=== PATIENT | male | born 1935 | race Caucasian/White ===

== ENCOUNTER 2023-01-04 09:39 | Emergency (ER) | payer MEDICARE, SELFPAY ==
[2023-01-04] VITALS (15 sets, daily range): BP systolic 99–147; BP diastolic 56–96; PULSE 63–134; RESP 18; TEMP 36.2; O2SAT 92–97; BMI 22.9
--- NOTE | 2023-01-04 10:18 | CRLHL7_ITS ---
For Patients: As a result of the Cures Act, medical imaging exams and procedure reports are released immediately into your electronic medical record. You may view this report before your referring provider. If you have questions, please contact your health care provider. INDICATION: CHILLS TECHNIQUE: Chest 1 view COMPARISON: 06/21/2012 FINDINGS: Postop changes distal left clavicular fracture. Degenerative changes both shoulders. No dense infiltrate. Vascular calcifications. Stable mediastinum. IMPRESSION: No acute findings. Dictated by Og Babb MD @ 01/04/2023 10:42:23 AM (Electronically Signed)
--- NOTE | 2023-01-04 10:20 | ED.GENADULT ---
HPI - General Adult General Time Seen by Provider: 10:20 Date Seen: 01/04/23 Chief complaint: Arrhythmia/Palpitations Stated complaint: Potential COVID, bad heart Time Seen by Provider: 01/04/23 10:03 Source: patient Mode of arrival: ambulatory Limitations: no limitations History of Present Illness HPI narrative: Patient is an 87 year white male who is on aspirin for AFib, work with rapid heart rate today, felt a little chilled. He was concerned he might have COVID as he was exposed to his at correction would COVID. Also family member here with him is ?recovering from COVID . Patient reports no shortness of breath, no chest pain, states he feels a little ?off? today, he is ambulatory he is able to sit up without difficulty or dizziness. He does not really feel dizzy or vertigo. He denies chest pain denies leg swelling or edema, is usually quite active. Related Data Allergies Allergy/AdvReac Type Severity Reaction Status Date / Time No Known Drug Allergies Allergy Verified 01/04/23 09:46 Review of Systems Status of ROS: Reports: 6 or more systems reviewed and unremarkable except as noted in History and below [facility] Medical History Health care directive on file ?Z78.9 - Other specified health status (ICD-10) Social History Smoking Status: Current every day smoker What tobacco products do you use: pipe Second hand tobacco smoke exposure: No How often do you have a drink containing alcohol: never How often do you have six or more drinks on one occasion: Never AUDIT-C Alcohol total score: 0 Non-prescribed substance use: other Non-prescribed substance use details: Kratom Exam Narrative: Exam Narrative: Objective: Alert orient x3, no cyanosis, talks in even unlabored sentences Vital signs show slightly elevated systolic and diastolic pressure, initially his pulse is 134, the patient was noted to be in AFib with a rapid rate at 134 a.m., but subsequently converted to normal sinus rhythm at about a rate of 70. He had obvious P waves. This was noted on telemetry, EKG pending. HEENT is unremarkable facial asymmetry mouth clear neck is supple chest is clear no rales or wheezing Heart rhythm regular with 2/6 systolic murmur. Abdomen benign soft nontender Extremities are no edema neurologic nonfocal : good peripheral perfusion noted. Const: Vital Signs, click to edit/add: Vital Signs - 24 hr 01/04/23 09:42 01/04/23 10:04 01/04/23 10:18 Temperature 97.2 F L Pulse Rate 76 Pulse Rate [Right Pulse Oximeter] 134 H Respiratory Rate 18 Blood Pressure Blood Pressure [Ri ght Upper Arm] 147/96 H Pulse Oximetry 97 97 94 Oxygen Delivery Me thod Room Air 01/04/23 10:30 01/04/23 10:36 01/04/23 10:37 Temperature Pulse Rate 72 72 72 Pulse Rate [Right Pulse Oximeter] Respiratory Rate Blood Pressure 115/65 Blood Pressure [Ri ght Upper Arm] Pulse Oximetry 97 95 95 Oxygen Delivery Me thod 01/04/23 11:00 01/04/23 11:02 01/04/23 11:03 Temperature Pulse Rate 71 74 70 Pulse Rate [Right Pulse Oximeter] Respiratory Rate Blood Pressure 113/56 L Blood Pressure [Ri ght Upper Arm] Pulse Oximetry 95 95 96 Oxygen Delivery Me thod 01/04/23 11:30 01/04/23 11:32 01/04/23 11:35 Temperature Pulse Rate 69 65 65 Pulse Rate [Right Pulse Oximeter] Respiratory Rate Blood Pressure 99/76 100/58 L Blood Pressure [Ri ght Upper Arm] Pulse Oximetry 92 94 94 Oxygen Delivery Me thod 01/04/23 12:00 01/04/23 12:02 01/04/23 12:03 Temperature Pulse Rate 63 63 64 Pulse Rate [Right Pulse Oximeter] Respiratory Rate Blood Pressure 112/59 L Blood Pressure [Ri ght Upper Arm] Pulse Oximetry 94 92 93 Oxygen Delivery Me thod Course Vital Signs Vital signs: Initial Vital Signs Temperature 97.2 F L 01/04/23 09:42 Temperature Source Temporal Artery Scan 01/04/23 09:42 Pulse Rate 134 H 01/04/23 09:42 Respiratory Rate 18 01/04/23 09:42 Blood Pressure 147/96 H 01/04/23 09:42 Blood Pressure Mean 113 H 01/04/23 09:42 Blood Pressure Position Sitting 01/04/23 09:42 Pulse Oximetry 97 01/04/23 09:42 Oxygen Delivery Method Room Air 01/04/23 09:42 Vital Signs Temperature 97.2 F L 01/04/23 09:42 Pulse Rate 134 H 01/04/23 09:42 Respiratory Rate 18 01/04/23 09:42 Blood Pressure 147/96 H 01/04/23 09:42 Pulse Oximetry 97 01/04/23 09:42 Oxygen Delivery Method Room Air 01/04/23 09:42 Temperature 97.2 F L 01/04/23 09:42 Pulse Rate 64 01/04/23 12:03 Respiratory Rate 18 01/04/23 09:42 Blood Pressure 112/59 L 01/04/23 12:02 Pulse Oximetry 93 01/04/23 12:03 Oxygen Delivery Method Room Air 01/04/23 09:42 Medical Decision Making MDM Narrative Medical decision making narrative: [age] year white male has been around COVID recently, with mild chills today, AFib with rapid rate, with what sounds like paroxysmal atrial fibrillation, now he has converted to sinus rhythm. He does feel better, would check a troponin, labs, IV fluid will be given, will check a COVID/influenza/RSV test. Will check a chest x-ray. Disposition pending findings. Addendum: The patient's chest x-ray looks unremarkable, by my read, he has a negative lab studies, he has a troponin that is in the intermediate range with normal renal function. His troponin I is in the 0.07 range and in the intermediate range. This is consistent with his point of care troponin. He is asymptomatic at present, he has converted from AFib to a sinus rhythm. He has been on aspirin for his AFib by his physician's preference and the patient's choice, is ER profile is unremarkable and glucose is elevated at 141. His CRP is negative, proBNP is negative, COVID influenza RSV are negative. In discussion the case the patient like to go home, I think it be worthy to get 1 more troponin before he leaves. He is agreeable to this. Addendum 12 30 p.m.: The patient had a 2nd troponin that is in the intermediate range but unchanged from his prior. I think he is since he has had no chest pain he can go home light activity, continue his usual medications, he was negative for all as viral studies. Observation and return if problems or concerns. Recommend he recheck with regular doctor within the next couple of days. Lab Data Labs: Lab Results 01/04/23 01/04/23 01/04/23 Range/Units 10:10 10:19 10:35 WBC 7.16 (4.50-11.00) K/uL RBC 4.10 L (4.30-5.90) m/uL Hgb 13.5 (13.5-17.5) gm/dL Hct 40.8 (37.0-53.0) % MCV 100 (80-100) fL MCH 33 (26-34) pg MCHC 33 (32-36) gm/dL RDW Coeff of Julito 12.4 (11.5-15.5) % Plt Count 335 (140-440) K/uL Neut % (Auto) 78.4 H (42.0-72.0) % Lymph % (Auto) 9.6 L (20-44) % [place] % (Auto) 10.3 (0.0-11.0) % Eos % (Auto) 1.5 (0.0-7.0) % Baso % (Auto) 0.1 (0.0-3.0) % Neut # (Auto) 5.60 (1.7-7.0) K/uL Lymph # (Auto) 0.70 L (0.90-2.90) K/uL [place] # (Auto) 0.70 (0.00-0.90) K/UL Eos # (Auto) 0.11 (0.00-0.50) K/uL Baso # (Auto) 0.01 (0.00-0.30) K/uL Abs Immat Gran (auto) 0.01 (0.00-0.30) K/uL Imm/Tot Granulo (auto) 0.1 % Sodium Cancelled Potassium Chloride Carbon Dioxide Anion Gap BUN Creatinine Estimated Creat Clear Estimated GFR Glucose Calcium Total Bilirubin (0.1-1.5) mg/dL Direct Bilirubin (0.0-0.5) mg/dL AST (12-35) U/L ALT (4-50) U/L Alkaline Phosphatase (40-150) U/L Troponin I (0.01-0.04) ng/mL C-Reactive Protein (0.5-1.0) mg/dL NT-Pro-B Natriuret Pep pg/mL Total Protein (6.0-8.3) g/dL Albumin (3.3-5.0) g/dL Amylase (18-89) U/L SARS-CoV-2 (PCR) Negative SARS-CoV-2 (Negative) Influenza Type A (PCR) Negative PCR FLU A (Negative) Influenza Type B (PCR) Negative PCR FLU B (Negative) RSV (PCR) Negative PCR RSV (Negative) POC Troponin I 0.07 H (0.01-0.04) ng/ml 01/04/23 01/04/23 01/04/23 Range/Units 10:35 10:35 10:35 WBC (4.50-11.00) K/uL RBC (4.30-5.90) m/uL Hgb (13.5-17.5) gm/dL Hct (37.0-53.0) % MCV (80-100) fL MCH (26-34) pg MCHC (32-36) gm/dL RDW Coeff of Julito (11.5-15.5) % Plt Count (140-440) K/uL Neut % (Auto) (42.0-72.0) % Lymph % (Auto) (20-44) % [place] % (Auto) (0.0-11.0) % Eos % (Auto) (0.0-7.0) % Baso % (Auto) (0.0-3.0) % Neut # (Auto) (1.7-7.0) K/uL Lymph # (Auto) (0.90-2.90) K/uL [place] # (Auto) (0.00-0.90) K/UL Eos # (Auto) (0.00-0.50) K/uL Baso # (Auto) (0.00-0.30) K/uL Abs Immat Gran (auto) (0.00-0.30) K/uL Imm/Tot Granulo (auto) % Sodium 142 Potassium Cancelled 3.8 Chloride Cancelled 107 Carbon Dioxide Cancelled Anion Gap BUN Creatinine Estimated Creat Clear Estimated GFR Glucose Calcium Total Bilirubin (0.1-1.5) mg/dL Direct Bilirubin (0.0-0.5) mg/dL AST (12-35) U/L ALT (4-50) U/L Alkaline Phosphatase (40-150) U/L Troponin I (0.01-0.04) ng/mL C-Reactive Protein (0.5-1.0) mg/dL NT-Pro-B Natriuret Pep pg/mL Total Protein (6.0-8.3) g/dL Albumin (3.3-5.0) g/dL Amylase (18-89) U/L SARS-CoV-2 (PCR) (Negative) Influenza Type A (PCR) (Negative) Influenza Type B (PCR) (Negative) RSV (PCR) (Negative) POC Troponin I (0.01-0.04) ng/ml 01/04/23 01/04/23 01/04/23 Range/Units 10:35 10:35 10:35 WBC (4.50-11.00) K/uL RBC (4.30-5.90) m/uL Hgb (13.5-17.5) gm/dL Hct (37.0-53.0) % MCV (80-100) fL MCH (26-34) pg MCHC (32-36) gm/dL RDW Coeff of Julito (11.5-15.5) % Plt Count (140-440) K/uL Neut % (Auto) (42.0-72.0) % Lymph % (Auto) (20-44) % [place] % (Auto) (0.0-11.0) % Eos % (Auto) (0.0-7.0) % Baso % (Auto) (0.0-3.0) % Neut # (Auto) (1.7-7.0) K/uL Lymph # (Auto) (0.90-2.90) K/uL [place] # (Auto) (0.00-0.90) K/UL Eos # (Auto) (0.00-0.50) K/uL Baso # (Auto) (0.00-0.30) K/uL Abs Immat Gran (auto) (0.00-0.30) K/uL Imm/Tot Granulo (auto) % Sodium Potassium Chloride Carbon Dioxide 27 Anion Gap Cancelled 8 BUN Cancelled 19 Creatinine Cancelled Estimated Creat Clear Estimated GFR Glucose Calcium Total Bilirubin (0.1-1.5) mg/dL Direct Bilirubin (0.0-0.5) mg/dL AST (12-35) U/L ALT (4-50) U/L Alkaline Phosphatase (40-150) U/L Troponin I (0.01-0.04) ng/mL C-Reactive Protein (0.5-1.0) mg/dL NT-Pro-B Natriuret Pep pg/mL Total Protein (6.0-8.3) g/dL Albumin (3.3-5.0) g/dL Amylase (18-89) U/L SARS-CoV-2 (PCR) (Negative) Influenza Type A (PCR) (Negative) Influenza Type B (PCR) (Negative) RSV (PCR) (Negative) POC Troponin I (0.01-0.04) ng/ml 01/04/23 01/04/23 01/04/23 Range/Units 10:35 10:35 10:35 WBC (4.50-11.00) K/uL RBC (4.30-5.90) m/uL Hgb (13.5-17.5) gm/dL Hct (37.0-53.0) % MCV (80-100) fL MCH (26-34) pg MCHC (32-36) gm/dL RDW Coeff of Julito (11.5-15.5) % Plt Count (140-440) K/uL Neut % (Auto) (42.0-72.0) % Lymph % (Auto) (20-44) % [place] % (Auto) (0.0-11.0) % Eos % (Auto) (0.0-7.0) % Baso % (Auto) (0.0-3.0) % Neut # (Auto) (1.7-7.0) K/uL Lymph # (Auto) (0.90-2.90) K/uL [place] # (Auto) (0.00-0.90) K/UL Eos # (Auto) (0.00-0.50) K/uL Baso # (Auto) (0.00-0.30) K/uL Abs Immat Gran (auto) (0.00-0.30) K/uL Imm/Tot Granulo (auto) % Sodium Potassium Chloride Carbon Dioxide Anion Gap BUN Creatinine 0.8 Estimated Creat Clear Cancelled 53.71 Estimated GFR Cancelled 87 Glucose Cancelled Calcium Total Bilirubin (0.1-1.5) mg/dL Direct Bilirubin (0.0-0.5) mg/dL AST (12-35) U/L ALT (4-50) U/L Alkaline Phosphatase (40-150) U/L Troponin I (0.01-0.04) ng/mL C-Reactive Protein (0.5-1.0) mg/dL NT-Pro-B Natriuret Pep pg/mL Total Protein (6.0-8.3) g/dL Albumin (3.3-5.0) g/dL Amylase (18-89) U/L SARS-CoV-2 (PCR) (Negative) Influenza Type A (PCR) (Negative) Influenza Type B (PCR) (Negative) RSV (PCR) (Negative) POC Troponin I (0.01-0.04) ng/ml 01/04/23 01/04/23 01/04/23 Range/Units 10:35 10:35 11:55 WBC (4.50-11.00) K/uL RBC (4.30-5.90) m/uL Hgb (13.5-17.5) gm/dL Hct (37.0-53.0) % MCV (80-100) fL MCH (26-34) pg MCHC (32-36) gm/dL RDW Coeff of Julito (11.5-15.5) % Plt Count (140-440) K/uL Neut % (Auto) (42.0-72.0) % Lymph % (Auto) (20-44) % [place] % (Auto) (0.0-11.0) % Eos % (Auto) (0.0-7.0) % Baso % (Auto) (0.0-3.0) % Neut # (Auto) (1.7-7.0) K/uL Lymph # (Auto) (0.90-2.90) K/uL [place] # (Auto) (0.00-0.90) K/UL Eos # (Auto) (0.00-0.50) K/uL Baso # (Auto) (0.00-0.30) K/uL Abs Immat Gran (auto) (0.00-0.30) K/uL Imm/Tot Granulo (auto) % Sodium Potassium Chloride Carbon Dioxide Anion Gap BUN Creatinine Estimated Creat Clear Estimated GFR Glucose 141 H Calcium Cancelled 9.6 Total Bilirubin 0.5 (0.1-1.5) mg/dL Direct Bilirubin 0.1 (0.0-0.5) mg/dL AST 31 (12-35) U/L ALT 26 (4-50) U/L Alkaline Phosphatase 86 (40-150) U/L Troponin I 0.07 H* (0.01-0.04) ng/mL C-Reactive Protein < 0.5 L (0.5-1.0) mg/dL NT-Pro-B Natriuret Pep 579 pg/mL Total Protein 7.3 (6.0-8.3) g/dL Albumin 3.9 (3.3-5.0) g/dL Amylase 53 (18-89) U/L SARS-CoV-2 (PCR) (Negative) Influenza Type A (PCR) (Negative) Influenza Type B (PCR) (Negative) RSV (PCR) (Negative) POC Troponin I 0.07 H (0.01-0.04) ng/ml Discharge Plan Discharge Clinical Impression: At increased risk of exposure to COVID-19 virus, Atrial fibrillation with rapid ventricular response Patient Disposition: Home w/ Parent or Adult Condition: Improved Additional Instructions: Light activity, continue home medications, would recommend repeat visit with her primary care doctor in the next few days. Return to the ED as needed. Activity Level: Light activity Discharge Diet: Regular Stand Alone Forms: MyHealth Info Instructions
[2023-01-04 10:54] LABS: Troponin, Point-of-Care* 0.07 ng/ml (0.01-0.04)
[2023-01-04 11:04] LABS: Basophils Absolute Auto 0.01 K/uL (0.00-0.30); Basophils Percent Auto 0.1 % (0.0-3.0); Eosinophils Absolute Auto 0.11 K/uL (0.00-0.50); Eosinophils Percent Auto 1.5 % (0.0-7.0); Hematocrit 40.8 % (37.0-53.0); Hemoglobin* 13.5 gm/dL (13.5-17.5); Immature Granulocytes Abs Auto 0.01 K/uL (0.00-0.30); Immature Granulocytes Pct Auto 0.1 %; Lymphocytes Percent Auto 9.6 % (20-44); Mean Corpuscular HGB Conc 33 gm/dL (32-36); Mean Corpuscular Hemoglobin 33 pg (26-34); Mean Corpuscular Volume 100 fL (80-100); Monocytes Percent Auto 10.3 % (0.0-11.0); Neutrophils Percent Auto 78.4 % (42.0-72.0); Platelet Count* 335 K/uL (140-440); RDW Coefficient of Variation % 12.4 % (11.5-15.5); White Blood Count* 7.16 K/uL (4.50-11.00)
[2023-01-04 11:08] LABS: PCR FLU A Negative PCR FLU A (Negative); PCR FLU B Negative PCR FLU B (Negative); PCR RSV Negative PCR RSV (Negative)
[2023-01-04 11:08] LABS: Slide Review Reflex No
[2023-01-04 11:12] LABS: SARS PCR* Negative SARS-CoV-2 (Negative)
[2023-01-04] MEDS: 0.9 % SODIUM CHLORIDE 500 ML 500 ML IV (11:20)
[2023-01-04 11:21] LABS: Albumin* 3.9 g/dL (3.3-5.0); Chloride* 107 mmol/L (96-114); Sodium* 142 mmol/L (135-149)
[2023-01-04 11:22] LABS: Potassium* 3.8 mmol/L (3.6-5.1)
[2023-01-04 11:24] LABS: Amylase* 53 U/L (18-89); Anion Gap 8 mEq/L (7-15); Bilirubin Direct* 0.1 mg/dL (0.0-0.5); Bilirubin Total* 0.5 mg/dL (0.1-1.5); Carbon Dioxide* 27 mmol/L (20-32); Creatinine* 0.8 mg/dL (0.5-1.5); Est. Creatinine Clearance* 53.71; Estimated Glomerular Filt Rate 87 ml/min; Total Protein* 7.3 g/dL (6.0-8.3)
[2023-01-04 11:25] LABS: Alanine Aminotransferase* 26 U/L (4-50); Alkaline Phosphatase* 86 U/L (40-150); Aspartate Amino Transferase* 31 U/L (12-35); Blood Urea Nitrogen* 19 mg/dL (7-30); Calcium* 9.6 mg/dL (8.4-10.6); Glucose* 141 mg/dL (60-115)
[2023-01-04 11:35] LABS: C Reactive Protein* < 0.5 mg/dL (0.5-1.0); NT Pro B Type NatriureticPept* 579 pg/mL
[2023-01-04 11:40] LABS: Troponin I* 0.07 ng/mL (0.01-0.04)
[2023-01-04 12:18] LABS: Troponin, Point-of-Care* 0.07 ng/ml (0.01-0.04)
== END 2023-01-04 12:38 | disposition home or self-care (01) ==
PROVIDERS: Emergency Provider Family Medicine; PCP Family Medicine
DX: Z20.822 Contact with and (suspected) exposure to COVID-19 (principal); I48.91 Unspecified atrial fibrillation
CPT/HCPCS: 36415; 71045; 80048; 80076; 82150; 83880; 84484; 85025; 86140; 87631; 93005; 94761; 96360; 99283; 99285; J7120

== ENCOUNTER 2023-01-17 19:06 | Emergency (ER) | payer MEDICARE, SELFPAY ==
[2023-01-17 19:17] VITALS: BP 109/63; PULSE 66; RESP 14; TEMP 36.1; O2SAT 94; BMI 23.6
--- NOTE | 2023-01-17 20:06 | ED.GENADULT ---
HPI - General Adult General Chief complaint: Lower Extremity Swelling Stated complaint: Swelling, pain in R leg Time Seen by Provider: 01/17/23 20:05 History of Present Illness HPI narrative: Pt here for eval of R knee/ lower leg swelling and pain. Woke up with symptoms, unable to walk on it. Recently started on warfarin for afib and have been adjusting dosages. Family concerned about a blood clot. 87 year old man presenting to the ER with primary complaint of left leg pain. On exam that would seem to be primarily the anterior aspect of the knee. Has had issues here before. No fever. Does not recall any trauma just woke with it. Even light touch really hurts. Has had some swelling in the lower leg as well so it seems therefore concerned about a blood clot as he is being adjusted with new Coumadin with a history of atrial fibrillation. No cough or cold symptoms. No shortness of breath. No chest pain. Does have tramadol available but this does not seem to help. Related Data Home Medications Medication Instructions Recorded Confirmed amlodipine 10 mg tablet 10 mg PO DAILY 01/17/23 02/13/23 atorvastatin 40 mg tablet 40 mg PO QPM 01/17/23 02/13/23 escitalopram oxalate 5 mg tablet 5 mg PO QAM 01/17/23 02/13/23 furosemide 20 mg tablet 20 mg PO QAM 01/17/23 02/13/23 gabapentin 300 mg capsule 300 mg PO 3XD 01/17/23 02/13/23 lisinopril 20 mg tablet 20 mg PO DAILY 01/17/23 02/13/23 metformin 500 mg tablet,extended 500 mg PO DAILY 01/17/23 02/13/23 release 24 hr metoprolol succinate 25 mg 100 mg PO DAILY 01/17/23 02/13/23 tablet,extended release 24 hr tramadol 50 mg tablet 50 mg PO QID PRN 01/17/23 02/13/23 warfarin 5 mg tablet 5 mg PO DAILY 01/17/23 02/13/23 ropinirole 0.5 mg tablet 0.5 mg PO QPM 02/13/23 02/13/23 Previous Rx's Medication Instructions Recorded ciprofloxacin HCl 500 mg tablet 500 mg PO BID 7 days #13 tabs 02/13/23 Allergies Allergy/AdvReac Type Severity Reaction Status Date / Time amoxicillin [From Augmentin] Allergy Intermediate severe Verified 02/13/23 17:46 diarrhea clavulanic acid Allergy Intermediate severe Verified 02/13/23 17:46 [From Augmentin] diarrhea Review of Systems Status of ROS: Reports: 6 or more systems reviewed and unremarkable except as noted in History and below [facility] Medical History Health care directive on file ?Z78.9 - Other specified health status (ICD-10) Social History Smoking Status: Current every day smoker What tobacco products do you use: pipe Second hand tobacco smoke exposure: No How often do you have a drink containing alcohol: never How often do you have six or more drinks on one occasion: Never AUDIT-C Alcohol total score: 0 Non-prescribed substance use: denies use and other Non-prescribed substance use details: [facility] service: No Exam Narrative: Exam Narrative: Pleasant. Mildly hard of hearing. Skin is warm and dry. Palm sized area of erythema anterior over the right knee without significant induration really of the skin. He is however exquisitely tender to even light touch this area. Mild calor. There is a small scab inferior and medial to the patella. Is not swollen like I might expect for a prepatellar bursa. There is mild far distal pitting edema about the ankle 1+. Generalized hemosiderin deposition and some scabs over the anterior ny. Negative Homans. Is not tender in the musculature of the calf or actually behind the knee. Const: Vital Signs, click to edit/add: Vital Signs - 24 hr 01/17/23 19:17 Temperature 97.0 F L Pulse Rate [Pulse Oximeter] 66 Respiratory Rate 14 Blood Pressure [Le ft Upper Arm] 109/63 Pulse Oximetry 94 Oxygen Delivery Me thod Room Air Documenting provider has reviewed patient's vital signs: yes Course Vital Signs Vital signs: Initial Vital Signs Temperature 97.0 F L 01/17/23 19:17 Temperature Source Temporal Artery Scan 01/17/23 19:17 Pulse Rate 66 01/17/23 19:17 Pulse Rhythm Regular 01/17/23 19:17 Respiratory Rate 14 01/17/23 19:17 Blood Pressure 109/63 01/17/23 19:17 Blood Pressure Mean 78 01/17/23 19:17 Blood Pressure Position Sitting 01/17/23 19:17 Pulse Oximetry 94 01/17/23 19:17 Oxygen Delivery Method Room Air 01/17/23 19:17 Vital Signs Temperature 97.0 F L 01/17/23 19:17 Pulse Rate 66 01/17/23 19:17 Respiratory Rate 14 01/17/23 19:17 Blood Pressure 109/63 01/17/23 19:17 Pulse Oximetry 94 01/17/23 19:17 Oxygen Delivery Method Room Air 01/17/23 19:17 Temperature 97.0 F L 01/17/23 19:17 Pulse Rate 66 01/17/23 19:17 Respiratory Rate 14 01/17/23 19:17 Blood Pressure 109/63 01/17/23 19:17 Pulse Oximetry 94 01/17/23 19:17 Oxygen Delivery Method Room Air 01/17/23 19:17 Medical Decision Making MDM Narrative Medical decision making narrative: Considering degree of tenderness absent any injury I think this is more likely a gout or pseudogout type issue here, however I might expect more swelling or joint effusion.. Will collect labs in this regard. I do not think imaging is warranted. Does not have convincing evidence of a DVT otherwise I would say. Will check INR however. The edema around the ankle I think is more related to the proximal inflammation. Cellulitis related to this skin trauma remains in the differential. Does not have much induration of the skin though nor swelling that I might think more consistent with a prepatellar bursitis. White count was mildly elevated not inconsistent with gouty flare or cellulitis or prepatellar bursitis. Uric acid is normal. Again not excluding a gouty diagnosis. I think prudent to treat for cellulitis. Is given Rocephin. He did feel he would benefit from some fluids and so was also given L normal saline. Also gave 1 dosing of prednisone in the ER. Will be continued on cephalexin as outpatient. Monitor for spread though would give a couple of days of trajectory. I debated continuing course of prednisone for degree of inflammation I see. I think though less likely a gouty history given has never had prior evidence of gout now at 87 years old. Otherwise prepatellar bursitis remains a possibility. Trying to avoid NSAIDs with Coumadin dosing. May need to continue with course of prednisone. Otherwise will be given some [place] as he is already familiar with tramadol. See patient discharge plan Lab Data Lab results reviewed: Yes I reviewed the patient's lab results Labs: Lab Results 01/17/23 01/17/23 Range/Units 20:37 21:04 WBC 12.87 H (4.50-11.00) K/uL RBC 3.88 L (4.30-5.90) m/uL Hgb 12.6 L (13.5-17.5) gm/dL Hct 39.0 (37.0-53.0) % MCV 101 H (80-100) fL MCH 33 (26-34) pg MCHC 32 (32-36) gm/dL RDW Coeff of Julito 13.0 (11.5-15.5) % Plt Count 342 (140-440) K/uL Neut % (Auto) 76.8 H (42.0-72.0) % Lymph % (Auto) 12.7 L (20-44) % [place] % (Auto) 9.2 (0.0-11.0) % Eos % (Auto) 0.9 (0.0-7.0) % Baso % (Auto) 0.2 (0.0-3.0) % Neut # (Auto) 9.90 H (1.7-7.0) K/uL Lymph # (Auto) 1.60 (0.90-2.90) K/uL [place] # (Auto) 1.20 H (0.00-0.90) K/UL Eos # (Auto) 0.10 (0.00-0.50) K/uL Baso # (Auto) 0.00 (0.00-0.30) K/uL Abs Immat Gran (auto) 0.00 (0.00-0.30) K/uL Imm/Tot Granulo (auto) 0.2 % ESR 32 H (2-15) mm/hr INR 2.38 H (0.91-1.10) Sodium 141 (135-149) mmol/L Potassium 3.7 (3.6-5.1) mmol/L Chloride 107 (96-114) mmol/L Carbon Dioxide 26 (20-32) mmol/L Anion Gap 8 (7-15) mEq/L BUN 31 H (7-30) mg/dL Creatinine 1.0 (0.5-1.5) mg/dL Estimated Creat Clear 52.25 Estimated GFR 74 ml/min Glucose 136 H (60-115) mg/dL Uric Acid 7.8 (2.2-8.4) mg/dL Calcium 9.1 (8.4-10.6) mg/dL C-Reactive Protein 2.5 H (0.5-1.0) mg/dL Lab Acknowledgement Test Added Discharge Plan Discharge Clinical Impression: Cellulitis Patient Disposition: Home w/ Parent or Adult Condition: Stable Additional Instructions: You received Rocephin in your IV. This is an antibiotic to get the ball rolling for you. You also got 60 mg of prednisone. Watch for marked increase in spreading redness, tension, heat, pain, fever. Cephalexin as antibiotic from [facility]. Take for 8 days starting in the morning. I think you might be scratching your skin in your sleep with your toenails on your left foot. Probably should keep them covered or more carefully trimmed. Prescriptions: No Action atorvastatin 40 mg tablet 40 mg PO QPM lisinopril 20 mg tablet 20 mg PO DAILY tramadol 50 mg tablet 50 mg PO QID PRN amlodipine 10 mg tablet 10 mg PO DAILY warfarin 5 mg tablet 5 mg PO DAILY gabapentin 300 mg capsule 300 mg PO 3XD furosemide 20 mg tablet 20 mg PO QAM metoprolol succinate 25 mg tablet extended release 24 hr 100 mg PO DAILY metformin 500 mg tablet extended release 24 hr 500 mg PO DAILY escitalopram oxalate 5 mg tablet 5 mg PO QAM ropinirole 0.5 mg tablet 0.5 mg PO QPM ciprofloxacin HCl 500 mg tablet 500 mg PO BID 7 Days Qty: 13 0RF Follow Up/Referrals: Farzana So DO [Primary Care Provider] - Stand Alone Forms: [employer] Info Instructions
[2023-01-17] MEDS: predniSONE 20 MG TABLET 60 MG PO (20:34)
[2023-01-17] MEDS: OxyCODONE/APAP 5-325 TABLET 1 TAB PO (20:34)
[2023-01-17] MEDS: 0.9 % SODIUM CHLORIDE 1000 ml 1,000 ML 2000 ML IV (20:35)
[2023-01-17 20:42] LABS: Basophils Percent Auto 0.2 % (0.0-3.0); Eosinophils Percent Auto 0.9 % (0.0-7.0); Hemoglobin* 12.6 gm/dL (13.5-17.5); Immature Granulocytes Pct Auto 0.2 %; Lymphocytes Percent Auto 12.7 % (20-44); Mean Corpuscular HGB Conc 32 gm/dL (32-36); Mean Corpuscular Hemoglobin 33 pg (26-34); Mean Corpuscular Volume 101 fL (80-100); Monocytes Percent Auto 9.2 % (0.0-11.0); Neutrophils Percent Auto 76.8 % (42.0-72.0); Platelet Count* 342 K/uL (140-440); Red Blood Count 3.88 m/uL (4.30-5.90); White Blood Count* 12.87 K/uL (4.50-11.00)
[2023-01-17 20:51] LABS: Slide Review Reflex No
[2023-01-17 21:01] LABS: Chloride* 107 mmol/L (96-114); Potassium* 3.7 mmol/L (3.6-5.1); Sodium* 141 mmol/L (135-149)
[2023-01-17 21:03] LABS: Est. Creatinine Clearance* 52.25; Estimated Glomerular Filt Rate 74 ml/min
[2023-01-17 21:04] LABS: Anion Gap 8 mEq/L (7-15); Carbon Dioxide* 26 mmol/L (20-32); INR 2.38 (0.91-1.10); Prothrombin Time 27.2 Seconds
[2023-01-17 21:05] LABS: Blood Urea Nitrogen* 31 mg/dL (7-30); Calcium* 9.1 mg/dL (8.4-10.6); Glucose* 136 mg/dL (60-115)
[2023-01-17 21:07] LABS: C Reactive Protein* 2.5 mg/dL (0.5-1.0)
[2023-01-17 21:46] LABS: Erythrocyte SedimentationRate* 32 mm/hr (2-15)
[2023-01-17 22:05] LABS: Uric Acid* 7.8 mg/dL (2.2-8.4)
[2023-01-17] MEDS: cefTRIAXone 1 GM in 0.9 % SODIUM CHLORIDE Mini-bag 100 ML IVPB (22:21)
== END 2023-01-17 23:27 | disposition home or self-care (01) ==
PROVIDERS: Emergency Provider Family Medicine; PCP Family Medicine
DX: L03.90 Cellulitis, unspecified (principal)
CPT/HCPCS: 36415; 80048; 84550; 85025; 85610; 85651; 86140; 96365; 99283; 99284; A9270; J0696; J7030; J7512

== ENCOUNTER 2023-01-19 06:43 | Emergency (ER) | payer MEDICARE, SELFPAY ==
[2023-01-19 07:20] VITALS: BP 146/71; PULSE 60; RESP 16; TEMP 36.5; O2SAT 99; BMI 23.6
--- NOTE | 2023-01-19 07:36 | CRLHL7_ITS ---
For Patients: As a result of the Cures Act, medical imaging exams and procedure reports are released immediately into your electronic medical record. You may view this report before your referring provider. If you have questions, please contact your health care provider. Indication: Effusion. Knee swelling and redness. Technique: Three views right knee Comparison: None. Findings/impression: Bones: Alignment is normal. No fractures or bone lesions. No osseous findings of osteomyelitis Joint spaces: Mild/moderate tricompartmental joint space narrowing. Chondrocalcinosis. Moderate mineralization projecting over the suprapatellar recess which may reflect intra-articular bodies or degeneration related to the extensor mechanism. Small joint effusion. Soft tissues: Mild prepatellar soft tissue thickening. Atherosclerotic calcifications for. Dictated by Cory Alcantar MD @ 01/19/2023 8:33:37 AM (Electronically Signed)
[2023-01-19] MEDS: predniSONE 10 MG TABLET 40 MG PO (07:50)
[2023-01-19] MEDS: OXYCODONE 5 MG TABLET PO (07:50)
--- NOTE | 2023-01-19 07:53 | ED.GENADULT ---
HPI - General Adult General Chief complaint: Extremity Pain/Injury, Lower Stated complaint: knee pain Time Seen by Provider: 01/19/23 06:54 Source: patient Mode of arrival: ambulatory Limitations: no limitations History of Present Illness HPI narrative: 87-year-old male presents the emergency department 30 hours after his last visit complaining of persistent knee pain. Notes reviewed from the evening of 01/17. It sounds as though he was diagnosed with possible cellulitis versus a prepatellar bursitis. He was started on Keflex after he was given an initial dose of Rocephin. Patient states that he still has pain. On specific questioning he tells me that the redness has gone down significantly in the lower leg but has not completely resolved around the knee. He is almost out of his oxycodone. There is no fever, no vomiting. He is able to move the knee just as much as he was a few days ago, this is not worsening. He denies any specific new complications. He is taking the Keflex as prescribed. It looks as though he was given a dose of prednisone on the evening of presentation and was not discharged on any additional doses, likely due to his Coumadin use. He has had no new falls, trauma or injury. He continues to take his medications as prescribed. The Coumadin was a new prescription for him, started about 10 days ago. It sounds as though he was advised to hold a dose and take half of a pill secondary to the prednisone and other factors. He reports that he has done so but does request some further direction regarding subsequent Coumadin dosing. It sounds as though his main reason for coming in is that he is out of the 5 tablets of oxycodone that he was given. Past medical history is reviewed, consistent with report from 01/17. Medications unchanged. Notable past medical problems of anxiety, diabetes, hypertension, neuropathy, AFib. Anticoagulation on Coumadin. ROS is notable for the right knee pain as described. Improvement in skin changes and no other new generalized complaints. Otherwise negative times 12 systems. Related Data Home Medications Medication Instructions Recorded Confirmed amlodipine 10 mg tablet 10 mg PO DAILY 01/17/23 01/19/23 atorvastatin 40 mg tablet 40 mg PO QPM 01/17/23 01/19/23 escitalopram oxalate 5 mg tablet 5 mg PO QAM 01/17/23 01/19/23 furosemide 20 mg tablet 20 mg PO QAM 01/17/23 01/19/23 gabapentin 300 mg capsule 300 mg PO 3XD 01/17/23 01/19/23 lisinopril 20 mg tablet 20 mg PO DAILY 01/17/23 01/19/23 metformin 500 mg tablet,extended 500 mg PO DAILY 01/17/23 01/19/23 release 24 hr metoprolol succinate 25 mg mg PO 01/17/23 tablet,extended release 24 hr tramadol 50 mg tablet 50 mg PO QID PRN 01/17/23 01/19/23 warfarin 5 mg tablet 5 mg PO DAILY 01/17/23 01/19/23 Previous Rx's Medication Instructions Recorded oxycodone 5 mg tablet 5 mg PO TID PRN pain #7 tabs 01/19/23 prednisone 20 mg tablet 20 mg PO .UD #10 tabs 01/19/23 Allergies Allergy/AdvReac Type Severity Reaction Status Date / Time No Known Drug Allergies Allergy Verified 01/19/23 07:19 [facility] Medical History Health care directive on file ?Z78.9 - Other specified health status (ICD-10) Social History Smoking Status: Current every day smoker What tobacco products do you use: pipe Second hand tobacco smoke exposure: No How often do you have a drink containing alcohol: never How often do you have six or more drinks on one occasion: Never AUDIT-C Alcohol total score: 0 Non-prescribed substance use: denies use and other Non-prescribed substance use details: [facility] [employer] service: No Exam Const: Vital Signs, click to edit/add: Vital Signs - 24 hr 01/19/23 07:20 01/19/23 08:15 Temperature 97.7 F Pulse Rate [Pulse Oximeter] 60 65 Respiratory Rate 16 16 Blood Pressure [Ri ght Upper Arm] 146/71 H 120/80 Pulse Oximetry 99 93 Oxygen Delivery Me thod Room Air Room Air Documenting provider has reviewed patient's vital signs: yes Common normals: no apparent distress and alert General appearance: cooperative, comfortable and well kempt Orientation/consciousness: Yes awake HENMT: Common normals: normocephalic Head and scalp: normocephalic Face and sinus: normal facial exam Mouth: oral and palatal mucosa normal Throat: posterior oropharynx normal Eye: Common normals: conjunctivae normal Conjunctiva: conjunctiva(e) normal Resp: Common normals: normal respiratory effort, no use of accessory muscles and clear to auscultation bilaterally Effort & inspection: able to speak in complete sentences Auscultation: clear to auscultation bilaterally Cardio: Other: Irregular rhythm, no obvious murmur. Positive S1 and S2. Extremity: Other: Right lower extremity has prepatellar redness and swelling to the right knee. There does not seem to be an effusion in the knee joint itself. He can flex and extend. I do not appreciate any instability on exam. There is no swelling or redness to the posterior portion of the knee. There is a small abrasion which looks to be scabbed over nicely in the lateral inferior portion of the prepatellar area. No purulent drainage. Area is somewhat warm to the touch in is exquisitely tender. The previously described area of redness on the lower right ny is absent. There is only a trace amount of bilateral lower extremity edema but it is symmetric. Range of motion is full and complete though he does report tenderness in the prepatellar area with manipulation. Neuro: Sensorium/orientation: awake and alert Speech: speech normal Psych: Appearance: well kempt Activity/motor behavior: appropriate eye contact Mood and affect: euthymic mood Insight: fair Judgement: fair Other: Insight into the disease process seems moderate. He does not seem to understand the discussion of the inflammation and the bursitis that was documented previously. Skin: Narrative: Prepatellar redness as described above. No other open sores, lacerations, bruising or new signs of trauma. Course Course ED Course: Prepatellar bursitis and possible cellulitis. I have recommended that we go ahead and do an x-ray that I can use to tell that this is more of a prepatellar fluid collection or if this is more in the joint itself. I do not think that an aspiration will be helpful as the area is not particularly fluctuant. I think that he is improving, as documented by the marked improvement in redness reported. I think that he could benefit from additional steroids and it sounds as though he just needs a refill of his pain medication. I would like to do some basic repeat labs to ensure that his inflammation and infection are improving consistent with what my exam is showing. I will likely plan for a couple of days of prednisone and do need an INR to determine repeat Coumadin dosing. Will start with 40 mg of prednisone p.o. x1 and 5 mg of oxycodone p.o. x1 while we await these studies. Reevaluation(s) Time of Reevaluation #1: 08:53 Reevaluation #1: Reviewed plan of care with patient. Labs show a very mild increase in leukocytosis. This could be multifactorial such as from the prednisone. Patient has marked improvement in the redness. He also has no fever or other signs of worsening infection. There is no significant effusion to suspect septic joint. He can also move the joint very easily, also supporting the notion that there is likely not a septic bursitis. I suspect that his pain worsened last night because his prednisone wore off. It sounds as though he was getting significant relief from the initial dose given in the ED. I have given 40 mg of prednisone p.o. x1 and he reports that the pain is improving after the Tylenol, prednisone and oxycodone given here in the ED. to continue antibiotics, I will give 1 additional dose of Rocephin and have him continue on his Keflex as prescribed. I will also give prednisone 20 mg twice daily at for p.m. and 8:00 a.m. for 5 days. This will likely make his INR rise. He has been on a reduced dose the last couple of nights. He will take a full 5 mg of his Coumadin tonight, and then continue on 2.5 mg nightly until he has this rechecked on Monday. Alarm symptoms reviewed that would warrant ED presentation. He verbalizes understanding and agreement. Written instructions provided as well. Vital Signs Vital signs: Initial Vital Signs Temperature 97.7 F 01/19/23 07:20 Temperature Source Temporal Artery Scan 01/19/23 07:20 Pulse Rate 60 01/19/23 07:20 Respiratory Rate 16 01/19/23 07:20 Blood Pressure 146/71 H 01/19/23 07:20 Blood Pressure Mean 96 01/19/23 07:20 Blood Pressure Position Sitting 01/19/23 07:20 Pulse Oximetry 99 01/19/23 07:20 Oxygen Delivery Method Room Air 01/19/23 07:20 Vital Signs Temperature 97.7 F 01/19/23 07:20 Pulse Rate 60 01/19/23 07:20 Respiratory Rate 16 01/19/23 07:20 Blood Pressure 146/71 H 01/19/23 07:20 Pulse Oximetry 99 01/19/23 07:20 Oxygen Delivery Method Room Air 01/19/23 07:20 Temperature 97.7 F 01/19/23 07:20 Pulse Rate 65 01/19/23 08:15 Respiratory Rate 16 01/19/23 08:15 Blood Pressure 120/80 01/19/23 08:15 Pulse Oximetry 93 01/19/23 08:15 Oxygen Delivery Method Room Air 01/19/23 08:15 Medical Decision Making Lab Data Lab results reviewed: Yes I reviewed the patient's lab results Lab results narrative: White blood cell count is up minimally but really not that different than when here 2 days ago. INR therapeutic. C-reactive protein is improving, uric acid is normal. Labs: Lab Results 01/19/23 Range/Units 07:45 WBC 14.62 H (4.50-11.00) K/uL RBC 3.88 L (4.30-5.90) m/uL Hgb 12.6 L (13.5-17.5) gm/dL Hct 38.9 (37.0-53.0) % MCV 100 (80-100) fL MCH 33 (26-34) pg MCHC 32 (32-36) gm/dL RDW Coeff of Julito 13.1 (11.5-15.5) % Plt Count 371 (140-440) K/uL Neut % (Auto) 72.9 H (42.0-72.0) % Lymph % (Auto) 17.8 L (20-44) % [place] % (Auto) 8.7 (0.0-11.0) % Eos % (Auto) 0.3 (0.0-7.0) % Baso % (Auto) 0.1 (0.0-3.0) % Neut # (Auto) 10.70 H (1.7-7.0) K/uL Lymph # (Auto) 2.60 (0.90-2.90) K/uL [place] # (Auto) 1.30 H (0.00-0.90) K/UL Eos # (Auto) 0.00 (0.00-0.50) K/uL Baso # (Auto) 0.00 (0.00-0.30) K/uL Abs Immat Gran (auto) 0.00 (0.00-0.30) K/uL Imm/Tot Granulo (auto) 0.2 % INR 2.00 H (0.91-1.10) Sodium 145 (135-149) mmol/L Potassium 3.6 (3.6-5.1) mmol/L Chloride 108 (96-114) mmol/L Carbon Dioxide 26 (20-32) mmol/L Anion Gap 11 (7-15) mEq/L BUN 19 (7-30) mg/dL Creatinine 0.7 (0.5-1.5) mg/dL Estimated Creat Clear 52.25 Estimated GFR 90 ml/min Glucose 104 (60-115) mg/dL Uric Acid 5.6 (2.2-8.4) mg/dL Calcium 9.3 (8.4-10.6) mg/dL C-Reactive Protein 1.8 H (0.5-1.0) mg/dL Imaging Data X-ray knee: Attestation: I have reviewed the pertinent imaging results. My impression: Lots of arthritis but no obvious joint effusion. There is some prepatellar swelling, as expected but really not a large amount. Radiologist's impression: Findings/impression: Bones: Alignment is normal. No fractures or bone lesions. No osseous findings of osteomyelitis Joint spaces: Mild/moderate tricompartmental joint space narrowing. Chondrocalcinosis. Moderate mineralization projecting over the suprapatellar recess which may reflect intra-articular bodies or degeneration related to the extensor mechanism. Small joint effusion. Soft tissues: Mild prepatellar soft tissue thickening. Atherosclerotic calcifications for. Discharge Plan Discharge Clinical Impression: Bursitis, prepatellar, Cellulitis Patient Disposition: Home, Self-Care Condition: Improved Instructions: Cellulitis (ED), Knee Bursitis (ED) Additional Instructions: As we discussed, your pain worsened once your prednisone that is used to treat the inflammation in your knee wore off. Your given a dose in the emergency department and it sounds as though it was quite helpful. You were also started on antibiotics for possible infection. I am glad that the redness is improving in you are not showing any further signs of infection. Unfortunately, this is going to still be painful for a couple more days. I think that you initially got great pain relief from the prednisone, so I would like to restart this. This needs to be done carefully because you are on warfarin. You were given a dose of prednisone here in the emergency department. I have sent a prescription to your pharmacy to take this twice daily for the next 5 days. I would like for you to try to take the medication at 4:00 p.m. and 8:00 a.m.. Taking it too close to bedtime can cause insomnia. The prednisone will make your INR higher. Because of this, I would like for you to take 1 full pill of your warfarin tonight, but then just a half of a tablet nightly for the next few nights. Please have your INR recheck on Monday. Continue taking your antibiotic that was given in the emergency department. There are no changes to the instructions with that pill. For pain, you may take Tylenol 1000 mg 3 times daily. I have also given you a small refill of the oxycodone. You may take 5 mg up to 3 times daily. Higher doses are likely to cause falls and confusion in older people. Thankfully, the prednisone should improve your pain significantly and thing should be quite a bit better within a couple of days. If things are not improving in 48 hours and especially if you start having severe weakness, high fevers and or other signs of worsening such as increased redness, please come back to the emergency department. Activity Level: Activity as Tolerated Discharge Diet: Diabetic Prescriptions: New prednisone 20 mg tablet 20 mg PO .UD Qty: 10 0RF Rx Instructions: 1 pill by mouth twice daily at 4:00 p.m. and 8:00 a.m. next dose 4pm 01/19/2023 oxycodone 5 mg tablet 5 mg PO TID PRN (Reason: pain) Qty: 7 0RF No Action atorvastatin 40 mg tablet 40 mg PO QPM lisinopril 20 mg tablet 20 mg PO DAILY tramadol 50 mg tablet 50 mg PO QID PRN amlodipine 10 mg tablet 10 mg PO DAILY warfarin 5 mg tablet 5 mg PO DAILY gabapentin 300 mg capsule 300 mg PO 3XD furosemide 20 mg tablet 20 mg PO QAM metoprolol succinate 25 mg tablet extended release 24 hr PO metformin 500 mg tablet extended release 24 hr 500 mg PO DAILY escitalopram oxalate 5 mg tablet 5 mg PO QAM Follow Up/Referrals: Farzana So DO [Primary Care Provider] - Stand Alone Forms: Rain Info Instructions
--- NOTE | 2023-01-19 07:54 | ED.NURSE ---
Prednisone 40mg, Oxycodone 5mg PO per MAR. Peripheral lab draw by entry writer to right AC, patient tolerated well. Awaiting XRAY. Patient denies needs at present, care continues.
[2023-01-19 08:02] LABS: Basophils Percent Auto 0.1 % (0.0-3.0); Eosinophils Percent Auto 0.3 % (0.0-7.0); Hematocrit 38.9 % (37.0-53.0); Hemoglobin* 12.6 gm/dL (13.5-17.5); Immature Granulocytes Pct Auto 0.2 %; Lymphocytes Percent Auto 17.8 % (20-44); Mean Corpuscular HGB Conc 32 gm/dL (32-36); Mean Corpuscular Hemoglobin 33 pg (26-34); Mean Corpuscular Volume 100 fL (80-100); Monocytes Percent Auto 8.7 % (0.0-11.0); Neutrophils Percent Auto 72.9 % (42.0-72.0); Platelet Count* 371 K/uL (140-440); RDW Coefficient of Variation % 13.1 % (11.5-15.5); Red Blood Count 3.88 m/uL (4.30-5.90); White Blood Count* 14.62 K/uL (4.50-11.00)
[2023-01-19 08:06] LABS: Slide Review Reflex No
[2023-01-19 08:15] VITALS: BP 120/80; PULSE 65; RESP 16; O2SAT 93
[2023-01-19 08:18] LABS: Prothrombin Time 23.7 Seconds
[2023-01-19 08:22] LABS: Chloride* 108 mmol/L (96-114); Potassium* 3.6 mmol/L (3.6-5.1); Sodium* 145 mmol/L (135-149)
[2023-01-19 08:25] LABS: Anion Gap 11 mEq/L (7-15); Blood Urea Nitrogen* 19 mg/dL (7-30); Carbon Dioxide* 26 mmol/L (20-32); Creatinine* 0.7 mg/dL (0.5-1.5); Est. Creatinine Clearance* 52.25; Estimated Glomerular Filt Rate 90 ml/min; Glucose* 104 mg/dL (60-115)
[2023-01-19 08:26] LABS: Calcium* 9.3 mg/dL (8.4-10.6); Uric Acid* 5.6 mg/dL (2.2-8.4)
[2023-01-19 08:28] LABS: C Reactive Protein* 1.8 mg/dL (0.5-1.0)
[2023-01-19] MEDS: ACETAMINOPHEN 500 MG TABLET 1000 MG PO (09:19)
[2023-01-19] MEDS: cefTRIAXone 500 MG VIAL IM (09:19)
[2023-01-19] MEDS: LIDOCAINE 1% 5 ml (pf) 5 ML VIAL 1 ML IM (09:20)
== END 2023-01-19 09:27 | disposition home or self-care (01) ==
PROVIDERS: Emergency Provider Family Medicine; PCP Family Medicine
DX: M70.41 Prepatellar bursitis, right knee (principal); L03.115 Cellulitis of right lower limb
CPT/HCPCS: 36415; 73562; 80048; 84550; 85025; 85610; 86140; 96372; 99284; A9270; J0696; J7512

== ENCOUNTER 2023-02-13 17:17 | Emergency (ER) | payer MEDICARE, SELFPAY ==
[2023-02-13 17:37] VITALS: BP 129/60; PULSE 67; RESP 16; TEMP 36.4; O2SAT 96; BMI 23.0
[2023-02-13 19:59] VITALS: BP 130/80; PULSE 62; RESP 18; O2SAT 98
--- NOTE | 2023-02-13 20:06 | ED_ITS ---
HPI - General Adult General Time Seen by Provider: 20:06 Date Seen: 02/13/23 Chief complaint: Extremity Pain/Injury, Lower Stated complaint: R foot infection Time Seen by Provider: 02/13/23 20:02 Source: patient and RN notes reviewed Mode of arrival: ambulatory Limitations: no limitations History of Present Illness HPI narrative: patient is an 87-year-old male coming in accompanied by his daughter with concern of wound on his right foot that they state the referral specialist told him to get to the ER get on antibiotics. He reportedly was at a wound clinic visit seeing a specialist that cannot prescribe antibiotics, presume that it was a clinical wound nurse. He saw her in [place]. He had seen his primary care provider on Monday, today is Monday. She had cultured his wound, started him on Augmentin. There is a wound along the medial 1st metatarsal joint and then a superficial wound on the top of his foot. These were cleaned and debrided by referral specialist today. They note that the 1 alongside his toe had a lot of drainage and was quite red. He has not had any fevers. They state on Monday his provider did do a culture. He was started on Augmentin Monday, took a dose Monday night, Monday morning started with diarrhea, did take 2 doses on Monday but the diarrhea was so profound that he stopped afterThe 2 doses on Monday. He still had some diarrhea but it has improved since stopping the Augmentin, lastHad diarrhea earlier this morning. No fevers, no abdominal pain. He does not seem to have any knowledge of C difficile and will presume he has never had this before. he definitely is telling me that the diarrhea is improved. Looking in our records, see that he was on Rocephin and Keflex in the beginning of January, received Rocephin and Keflex on January 17 for a cellulitis, gotten additional dose of Rocephin on January 19. Related Data Home Medications Medication Instructions Recorded Confirmed amlodipine 10 mg tablet 10 mg PO DAILY 01/17/23 02/13/23 atorvastatin 40 mg tablet 40 mg PO QPM 01/17/23 02/13/23 escitalopram oxalate 5 mg tablet 5 mg PO QAM 01/17/23 02/13/23 furosemide 20 mg tablet 20 mg PO QAM 01/17/23 02/13/23 gabapentin 300 mg capsule 300 mg PO 3XD 01/17/23 02/13/23 lisinopril 20 mg tablet 20 mg PO DAILY 01/17/23 02/13/23 metformin 500 mg tablet,extended 500 mg PO DAILY 01/17/23 02/13/23 release 24 hr metoprolol succinate 25 mg 100 mg PO DAILY 01/17/23 02/13/23 tablet,extended release 24 hr tramadol 50 mg tablet 50 mg PO QID PRN 01/17/23 02/13/23 warfarin 5 mg tablet 5 mg PO DAILY 01/17/23 02/13/23 ropinirole 0.5 mg tablet 0.5 mg PO QPM 02/13/23 02/13/23 Previous Rx's Medication Instructions Recorded ciprofloxacin HCl 500 mg tablet 500 mg PO BID 7 days #13 tabs 02/13/23 Allergies Allergy/AdvReac Type Severity Reaction Status Date / Time amoxicillin [From Augmentin] Allergy Intermediate severe Verified 02/13/23 17:46 diarrhea clavulanic acid Allergy Intermediate severe Verified 02/13/23 17:46 [From Augmentin] diarrhea Review of Systems Narrative: As per HPI. PFSH REPLACED BY [facility] Medical History Health care directive on file ?Z78.9 - Other specified health status (ICD-10) Social History Smoking Status: Current every day smoker What tobacco products do you use: pipe Second hand tobacco smoke exposure: No How often do you have a drink containing alcohol: never How often do you have six or more drinks on one occasion: Never AUDIT-C Alcohol total score: 0 Non-prescribed substance use: denies use and other Non-prescribed substance use details: [facility] [employer] service: No Exam Const: Vital Signs, click to edit/add: Vital Signs - 24 hr 02/13/23 17:37 02/13/23 19:59 Temperature 97.6 F Pulse Rate [Pulse Oximeter] 67 62 Respiratory Rate 16 18 Blood Pressure [Ri ght Upper Arm] 129/60 130/80 Pulse Oximetry 96 98 Oxygen Delivery Me thod Room Air Room Air Dao his seen him in the hallway due to the acuity and volume in the ED, he is sitting up, he is alert, interactive, no apparent distress. Lungs are clear, CV regular rate and rhythm, no significant murmur. He is afebrile. He has gauze wrapped around some foam type pads, 1 overlying the medial right 1st metatarsophalangeal joint and then 1 on the dorsum of the foot. The 1 on the dorsum of his foot actually looks a little more pink but no surrounding erythema, no swelling, slight denudation centrally. He on the medial aspect of the toe has a raised area that looks like regular skin, but there is some swelling, central little cavitary ulcerated area, I can express no drainage, there is absolutely no erythema, not even any pinkish change. Documenting provider has reviewed patient's vital signs: yes Course Course ED Course: Reviewed with them that I would look at his culture results. Nursing staff was able to pull this up. He grew E coli and Acinetobacter ursingii. these were pansensitive but only oral choices are ciprofloxacin and sulfa. Given these choices would favor Cipro. We have recent kidney functions on him, creatinine clearance in the 50 range. He should be fine on standard dosing of Cipro with follow-up with his primary care provider. I have reviewed with them at length my concern of worsening diarrhea may be C difficile colitis. If diarrhea does worsen withInitiation of the Cipro,This needs to be tested. With how good the wound looked to me right now, would not have placed him on antibiotics but they are adamant that it looked quite bad earlier today that she really did do some debridement of it, they state it was draining pus. Thus, feel like I would need to listen to their concerns. Will cover with antibiotic, give dose here tonight and send the rest in to the pharmacy, follow up with primary care provider this week. Vital Signs Vital signs: Initial Vital Signs Temperature 97.6 F 02/13/23 17:37 Temperature Source Temporal Artery Scan 02/13/23 17:37 Pulse Rate 67 02/13/23 17:37 Respiratory Rate 16 02/13/23 17:37 Blood Pressure 129/60 02/13/23 17:37 Blood Pressure Mean 83 02/13/23 17:37 Blood Pressure Position Sitting 02/13/23 17:37 Pulse Oximetry 96 02/13/23 17:37 Oxygen Delivery Method Room Air 02/13/23 17:37 Vital Signs Temperature 97.6 F 02/13/23 17:37 Pulse Rate 67 02/13/23 17:37 Respiratory Rate 16 02/13/23 17:37 Blood Pressure 129/60 02/13/23 17:37 Pulse Oximetry 96 02/13/23 17:37 Oxygen Delivery Method Room Air 02/13/23 17:37 Temperature 97.6 F 02/13/23 17:37 Pulse Rate 62 02/13/23 19:59 Respiratory Rate 18 02/13/23 19:59 Blood Pressure 130/80 02/13/23 19:59 Pulse Oximetry 98 02/13/23 19:59 Oxygen Delivery Method Room Air 02/13/23 19:59 Discharge Plan Discharge Clinical Impression: Infected skin ulcer with fat layer exposed Patient Disposition: Home, Self-Care Condition: Stable Instructions: Acute Wounds (ED) Additional Instructions: continue Cipro in the morning, will need to fruit picker from pharmacy, take as prescribed. Continue with wound management as outlined by your primary care provider. Do recommend follow-up with your primary care provider this week if this has not been scheduled. Antibiotics can affect your INR/ protime result. Do recommend having this rechecked this week given that you been on antibiotics. If the diarrhea does start up again with use of the Cipro, need to have the diarrhea tested for Clostridium difficile. You can talk to your clinic about this. Activity Level: Activity as Tolerated Prescriptions: New ciprofloxacin HCl 500 mg tablet 500 mg PO BID 7 Days Qty: 13 0RF No Action atorvastatin 40 mg tablet 40 mg PO QPM lisinopril 20 mg tablet 20 mg PO DAILY tramadol 50 mg tablet 50 mg PO QID PRN amlodipine 10 mg tablet 10 mg PO DAILY warfarin 5 mg tablet 5 mg PO DAILY gabapentin 300 mg capsule 300 mg PO 3XD furosemide 20 mg tablet 20 mg PO QAM metoprolol succinate 25 mg tablet extended release 24 hr 100 mg PO DAILY metformin 500 mg tablet extended release 24 hr 500 mg PO DAILY escitalopram oxalate 5 mg tablet 5 mg PO QAM ropinirole 0.5 mg tablet 0.5 mg PO QPM Follow Up/Referrals: Farzana So DO [Primary Care Provider] - Stand Alone Forms: My[employer] Info Instructions
[2023-02-13] MEDS: CIPROFLOXACIN 500 MG TABLET PO (21:03)
[2023-02-13 21:04] VITALS: BP 130/80; PULSE 62; RESP 18; TEMP 36.4
== END 2023-02-13 21:04 | disposition home or self-care (01) ==
PROVIDERS: Emergency Provider Family Medicine; PCP Family Medicine
DX: L97.912 Non-pressure chronic ulcer of unspecified part of right lower leg with fat layer exposed (principal)
CPT/HCPCS: 99283; 99284; A9270

== ENCOUNTER 2023-08-04 14:15 | Outpatient (RCR) | payer MEDICARE, SELFPAY | END 2023-10-20 08:55 | disposition home or self-care (01) | PROVIDERS: PCP Family Medicine; Visit Provider Orthopaedic Surgery | DX: G56.02 Carpal tunnel syndrome, left upper limb (principal); Z51.89 Encounter for other specified aftercare | CPT/HCPCS: 97110; 97140; 97165; X5282 ==

== ENCOUNTER 2024-08-22 01:19 | Emergency (ER) | payer MEDICARE, SELFPAY ==
[2024-08-22] VITALS (23 sets, daily range): BP systolic 105–129; BP diastolic 64–90; PULSE 83–105; RESP 14–27; TEMP 36.6; O2SAT 91–97
--- NOTE | 2024-08-22 01:21 | ED_ITS ---
HPI - Arrhythmia/Palpitations General Time Seen by Provider: 01:21 Date Seen: 08/22/24 Chief Complaint: Arrhythmia/Palpitations Stated Complaint: A fib Time Seen by Provider: 08/22/24 01:20 Source: patient, RN notes reviewed and old records reviewed Mode of arrival: ambulatory Limitations: no limitations History of Present Illness HPI narrative: 89 year old male who comes in today feeling off. Patient reports history atrial fibrillation, woke up shortly prior to coming the emergency department and thought he was in atrial fibrillation although his symptom is described as felt confused and off. No chest pain or palpitations. No shortness of breath, cough, runny nose, nausea vomiting. Has had some diarrhea recently but attributes that to diet. No new medications. He feels better now but still not quite back to normal. No headache or falls. Related Data Home Medications ?Medication ?Instructions ?Recorded ?Confirmed amlodipine 10 mg tablet 10 mg PO DAILY 01/17/23 02/13/23 atorvastatin 40 mg tablet 40 mg PO QPM 01/17/23 02/13/23 escitalopram oxalate 5 mg tablet 5 mg PO QAM 01/17/23 02/13/23 furosemide 20 mg tablet 20 mg PO QAM 01/17/23 02/13/23 gabapentin 300 mg capsule 300 mg PO 3XD 01/17/23 02/13/23 lisinopril 20 mg tablet 20 mg PO DAILY 01/17/23 02/13/23 metformin 500 mg tablet,extended 500 mg PO DAILY 01/17/23 02/13/23 release 24 hr metoprolol succinate 25 mg 100 mg PO DAILY 01/17/23 02/13/23 tablet,extended release 24 hr tramadol 50 mg tablet 50 mg PO QID PRN 01/17/23 02/13/23 warfarin 5 mg tablet 5 mg PO DAILY 01/17/23 02/13/23 ropinirole 0.5 mg tablet 0.5 mg PO QPM 02/13/23 02/13/23 Previous Rx's ?Medication ?Instructions ?Recorded ciprofloxacin HCl 500 mg tablet 500 mg PO BID 7 days #13 tabs 02/13/23 Allergies Allergy/AdvReac Type Severity Reaction Status Date / Time amoxicillin (From Augmentin) Allergy Intermediate severe Verified 02/13/23 17:46 diarrhea clavulanic acid (From Allergy Intermediate severe Verified 02/13/23 17:46 Augmentin) diarrhea [facility] Medical History Health care directive on file ?Z78.9 - Other specified health status (ICD-10) Social History Smoking Status: Current every day smoker What tobacco products do you use: pipe Second hand tobacco smoke exposure: No How often do you have a drink containing alcohol: never How often do you have six or more drinks on one occasion: Never AUDIT-C Alcohol total score: 0 Non-prescribed substance use: denies use and other Non-prescribed substance use details: [facility] [employer] service: No Exam Narrative: Exam Narrative: General: Well-developed and well-nourished, no acute distress Head: Atraumatic and normocephalic Eyes: Pupils are equal reactive, extraocular motions intact, conjunctiva clear ENT: External nose and ears are normal, posterior pharynx without erythema or exudate Neck: No midline cervical tenderness, full spontaneous range of motion the neck, trachea midline, no adenopathy Heart: Regular rate and rhythm no murmurs or thrills Lungs: Clear to auscultation bilaterally without wheezes or crackles Abdomen: Soft, nontender, nondistended with active bowel sounds Musculoskeletal: No tenderness, deformity, or edema Neurologic: Awake, alert, and oriented x3, no gross focal neurologic deficits, cranial nerves intact as tested Psych: Mood and affect are appropriate Skin: No rashes Const: Vital Signs, click to edit/add: Vital Signs - 24 hr 08/22/24 01:22 08/22/24 01:28 08/22/24 01:30 Temperature 97.9 F Pulse Rate 95 100 Pulse Rate [Pulse Oximeter] 98 Respiratory Rate 16 16 16 Blood Pressure 119/85 121/73 Blood Pressure [Le ft Forearm] 129/77 Pulse Oximetry 95 94 Oxygen Delivery Me thod Room Air Room Air 08/22/24 01:30 08/22/24 01:31 08/22/24 01:32 Temperature Pulse Rate 98 95 97 Pulse Rate [Pulse Oximeter] Respiratory Rate 21 19 Blood Pressure 119/85 121/73 Blood Pressure [Le ft Forearm] Pulse Oximetry 96 97 93 Oxygen Delivery Me thod 08/22/24 01:45 08/22/24 01:47 08/22/24 01:48 Temperature Pulse Rate 95 105 H Pulse Rate [Pulse Oximeter] Respiratory Rate 16 15 27 H Blood Pressure 128/73 128/71 Blood Pressure [Le ft Forearm] Pulse Oximetry 95 96 Oxygen Delivery Me thod 08/22/24 02:00 08/22/24 02:02 08/22/24 02:15 Temperature Pulse Rate 94 95 90 Pulse Rate [Pulse Oximeter] Respiratory Rate 16 20 Blood Pressure 123/64 Blood Pressure [Le ft Forearm] Pulse Oximetry 95 94 95 Oxygen Delivery Me thod 08/22/24 02:17 08/22/24 02:31 08/22/24 02:32 Temperature Pulse Rate 93 89 90 Pulse Rate [Pulse Oximeter] Respiratory Rate 16 16 Blood Pressure 109/68 105/90 H Blood Pressure [Le ft Forearm] Pulse Oximetry 93 92 92 Oxygen Delivery Ms thod 08/22/24 02:45 08/22/24 02:47 08/22/24 03:00 Temperature Pulse Rate 86 84 85 Pulse Rate [Pulse Oximeter] Respiratory Rate 16 14 Blood Pressure Blood Pressure [Le ft Forearm] Pulse Oximetry 92 92 91 Oxygen Delivery Ms thod 08/22/24 03:01 Temperature Pulse Rate 86 Pulse Rate [Pulse Oximeter] Respiratory Rate 16 Blood Pressure 111/73 Blood Pressure [Le ft Forearm] Pulse Oximetry 91 Oxygen Delivery Me thod Course Course ED Course: Review chart shows history of paroxysmal atrial fibrillation, patient metoprolol 125 mg daily, patient is anticoagulated on Coumadin, most recent INR 2.3 on August 01, prior to that was 2 on July 18 and 4.5 on July 11. Patient presents today with some confusion on waking and feeling not his normal self. No other specific symptoms including chest pain, thought he was in atrial fibrillation, no shortness of breath, no fever. On exam here patient's finally stable, heart rate in the 90s and is in sinus rhythm now. Will evaluate further cause altered mental status including infection, electrolyte disturbance. Certainly patient may have been in atrial fibrillation with some encephalopathy related to that had now is converted on his own. No headache or focal neurologic deficits to suggest intracranial bleed, no indication for head CT at this time. Gentle fluid bolus will be given as well. EKG independently interpreted by me performed at 1:29 a.m. demonstrates sinus rhythm rate 97, nonspecific ST changes, no acute ischemic changes, OK 168, QTC 419, compared to prior of December 2022, rate has increased. Reevaluation(s) Time of Reevaluation #1: 02:30 Reevaluation #1: Labs independently interpreted by me with white blood cell count 12.3, this is a mild monocytosis, normal basic panel, normal magnesium, urinalysis not consistent infection. Initial troponin 0.01, this will be repeated. Patient remains in sinus rhythm, heart rate improved and anticipate discharge. Chest x-ray independently interpreted by me negative for acute findings. Time of Reevaluation #2: 03:34 Reevaluation #2: Repeat troponin is normal, patient is stable for discharge Vital Signs Vital signs: Initial Vital Signs Temperature 97.9 F 08/22/24 01:22 Temperature Source Temporal Artery Scan 08/22/24 01:22 Pulse Rate 98 08/22/24 01:22 Respiratory Rate 16 08/22/24 01:22 Blood Pressure 129/77 08/22/24 01:22 Blood Pressure Mean 94 08/22/24 01:22 Blood Pressure Position Semi-Fowlers 08/22/24 01:22 Oxygen Delivery Method Room Air 08/22/24 01:22 Vital Signs Temperature 97.9 F 08/22/24 01:22 Pulse Rate 98 08/22/24 01:22 Respiratory Rate 16 08/22/24 01:22 Blood Pressure 129/77 08/22/24 01:22 Oxygen Delivery Method Room Air 08/22/24 01:22 Temperature 97.9 F 08/22/24 01:22 Pulse Rate 86 08/22/24 03:01 Respiratory Rate 16 08/22/24 03:01 Blood Pressure 111/73 08/22/24 03:01 Pulse Oximetry 91 08/22/24 03:01 Oxygen Delivery Method Room Air 08/22/24 01:28 Medications Administered Medications: Discontinued Medications Generic Name Dose Route Start Last Admin Trade Name Freq PRN Reason Stop Dose Admin Sodium Chloride 500 mls @ 500 mls/hr 08/22/24 01:34 08/22/24 02:18 0.9 % Sodium Chloride 500 Ml IV 08/22/24 02:33 Infused .Q1H ONE Infusion MDM - Arrhythmia/Palpitations Lab Data Labs: Lab Results 08/22/24 08/22/24 08/22/24 Range/Units 01:30 01:34 01:40 WBC 12.32 H (4.50-11.00) K/uL RBC 4.47 (4.30-5.90) m/uL Hgb 14.4 (13.5-17.5) gm/dL Hct 44.9 (37.0-53.0) % MCV 100 (80-100) fL MCH 32 (26-34) pg MCHC 32 (32-36) gm/dL RDW Coeff of Julito 13.1 (11.5-15.5) % Plt Count 375 (140-440) K/uL Neut % (Auto) 62.1 (42.0-72.0) % Lymph % (Auto) 23.1 (20-44) % [place] % (Auto) 11.9 H (0.0-11.0) % Eos % (Auto) 2.2 (0.0-7.0) % Baso % (Auto) 0.4 (0.0-3.0) % Neut # (Auto) 7.70 H (1.7-7.0) K/uL Lymph # (Auto) 2.80 (0.90-2.90) K/uL [place] # (Auto) 1.50 H (0.00-0.90) K/UL Eos # (Auto) 0.30 (0.00-0.50) K/uL Baso # (Auto) 0.00 (0.00-0.30) K/uL Abs Immat Gran (auto) 0.00 (0.00-0.30) K/uL Imm/Tot Granulo (auto) 0.3 % INR 1.71 H (0.91-1.10) VBG pH 7.340 (7.32-7.43) VBG pCO2 45 (40-50) mmHG VBG pO2 32.9 (25-47) mmHG VBG HCO3 25 (21-28) mmol/L Sodium 143 (135-149) mmol/L Potassium 4.8 (3.6-5.1) mmol/L Chloride 108 (96-114) mmol/L Carbon Dioxide 22 (20-32) mmol/L Anion Gap 13 (7-15) mEq/L BUN 25 (7-30) mg/dL Creatinine 1.2 (0.5-1.5) mg/dL Estimated GFR 59 ml/min Glucose 130 H (60-115) mg/dL Calcium 9.8 (8.4-10.6) mg/dL Magnesium 1.5 (1.5-2.6) mg/dL Urine Color Yellow (Yellow) Urine Appearance Clear (Clear) Urine pH 6.5 (5.0-8.5) Ur Specific [place] 1.015 (1.000-1.030) Urine Protein Trace A (Negative) Urine Glucose (UA) Negative (Negative) Urine Ketones 1+ A (Negative) Urine Blood Trace-intact A (Negative) Urine Nitrite Negative (Negative) Urine Bilirubin Negative (Negative) Urine Urobilinogen 0.2 (0.2-1.0) Ur Leukocyte Esterase Negative (Negative) Urine RBC 0-2 (0-2) Urine WBC 0-2 (0-5) Ur Squamous Epith Cells Few (None-Few) Amorphous Sediment Few A (None) Urine Bacteria Few A (None) POC Troponin I 0.01 (0.01-0.04) ng/ml 08/22/24 Range/Units 03:15 WBC (4.50-11.00) K/uL RBC (4.30-5.90) m/uL Hgb (13.5-17.5) gm/dL Hct (37.0-53.0) % MCV (80-100) fL MCH (26-34) pg MCHC (32-36) gm/dL RDW Coeff of Julito (11.5-15.5) % Plt Count (140-440) K/uL Neut % (Auto) (42.0-72.0) % Lymph % (Auto) (20-44) % [place] % (Auto) (0.0-11.0) % Eos % (Auto) (0.0-7.0) % Baso % (Auto) (0.0-3.0) % Neut # (Auto) (1.7-7.0) K/uL Lymph # (Auto) (0.90-2.90) K/uL [place] # (Auto) (0.00-0.90) K/UL Eos # (Auto) (0.00-0.50) K/uL Baso # (Auto) (0.00-0.30) K/uL Abs Immat Gran (auto) (0.00-0.30) K/uL Imm/Tot Granulo (auto) % INR (0.91-1.10) VBG pH (7.32-7.43) VBG pCO2 (40-50) mmHG VBG pO2 (25-47) mmHG VBG HCO3 (21-28) mmol/L Sodium (135-149) mmol/L Potassium (3.6-5.1) mmol/L Chloride (96-114) mmol/L Carbon Dioxide (20-32) mmol/L Anion Gap (7-15) mEq/L BUN (7-30) mg/dL Creatinine (0.5-1.5) mg/dL Estimated GFR ml/min Glucose (60-115) mg/dL Calcium (8.4-10.6) mg/dL Magnesium (1.5-2.6) mg/dL Urine Color (Yellow) Urine Appearance (Clear) Urine pH (5.0-8.5) Ur Specific [place] (1.000-1.030) Urine Protein (Negative) Urine Glucose (UA) (Negative) Urine Ketones (Negative) Urine Blood (Negative) Urine Nitrite (Negative) Urine Bilirubin (Negative) Urine Urobilinogen (0.2-1.0) Ur Leukocyte Esterase (Negative) Urine RBC (0-2) Urine WBC (0-5) Ur Squamous Epith Cells (None-Few) Amorphous Sediment (None) Urine Bacteria (None) POC Troponin I 0.01 (0.01-0.04) ng/ml Discharge Plan Discharge Clinical Impression: Transient confusion, Subtherapeutic international normalized ratio (INR), Paroxysmal atrial fibrillation Patient Disposition: Home, Self-Care Condition: Stable Instructions: A-fib (Atrial Fibrillation) (ED) Additional Instructions: No definite for cause for your confusion earlier is found. You may have gone into atrial fibrillation which contributed to symptoms, you have been normal rhythm in the emergency department. Continue your current medications and follow-up with your primary care doctor next week. Activity Level: Activity as Tolerated Discharge Diet: Regular Prescriptions: No Action atorvastatin 40 mg tablet 40 mg PO QPM lisinopril 20 mg tablet 20 mg PO DAILY tramadol 50 mg tablet 50 mg PO QID PRN amlodipine 10 mg tablet 10 mg PO DAILY warfarin 5 mg tablet 5 mg PO DAILY gabapentin 300 mg capsule 300 mg PO 3XD furosemide 20 mg tablet 20 mg PO QAM metoprolol succinate 25 mg tablet extended release 24 hr 100 mg PO DAILY metformin 500 mg tablet extended release 24 hr 500 mg PO DAILY escitalopram oxalate 5 mg tablet 5 mg PO QAM ropinirole 0.5 mg tablet 0.5 mg PO QPM ciprofloxacin HCl 500 mg tablet 500 mg PO BID 7 Days Qty: 13 0RF Follow Up/Referrals: Farzana So DO [Primary Care Provider] - Stand Alone Forms: [email or web address] Info Instructions
--- OUTSIDE RECORDS SUMMARY | 2024-08-22 01:21 | XMS_ITS | Clinical Summary ---
Author Organization [facility] Address [address] [place] [id number] Care Team Providers Care Process Maintenance Technician Name Role Phone Farzana So DO Primary Care Provider Allergies Active Allergy Reactions Criticality Noted Date Comments Amoxicillin-Pot Clavulanate Diarrhea 03/01/20 23 Cats (Fur, Dander, Saliva) Runny Nose 3 Metformin Stomach Upset 08/09/2011 Unlisted Allergen (Include Detail In Comments) Runny Nose 08/29/2016 Seasonal allergies Oxycodone-Acetaminophen Nausea Only 10/17/2018 Medications loratadine (CLARITIN) 10 mg tablet Take 1 tablet by mouth once daily. 0 04/19/19 12 Active blood-glucose meter (ONE TOUCH ULTRA 2)Indications:DM type 2 (diabetes mellitus, type 2) (HC) Dispense glucose meter, test strips and lancets covered by the patient insurance. Test 1 times per day. 1 Device 0 09/05/19 14 Active niacin 50 mg tabletIndications :Dyslipidemia TAKE ONE TABLET BY MOUTH ONE TIME DAILY. TAKE ASPIRIN 30 MINUTES PRIOR TO TAKING THIS MEDICATION. 90 tablet 2 02/10/20 16 Active ONETOUCH ULTRA BLUE TEST STRIP stripIndications: Type 2 diabetes mellitus with diabetic neuropathy, without long-term current use of insulin (HC) USE TO TEST BLOOD GLUCOSE LEVELS TWICE DAILY. 200 Strip 3 11/11/19 18 Active menthol 4% (BIOFREEZE, MENTHOL,) topical gelIndications:Ch ronic pain of right knee Apply topically to affected area(s) 2 times daily if needed (pain). 1 Tube 3 12/09/19 18 Active nitroglycerin (NITROSTAT) 0.4 mg sublingual tabletIndications :Coronary artery disease due to lipid rich plaque Place 1 tablet under the tongue every 5 minutes if needed for Chest Pain. 30 tablet 01/09/20 20 Active cyanocobalamin (Vitamin B-12) 1,000 mcg tabletIndications :Macrocytic anemia,Vitamin B12 deficiency Take 1 Tablet (1,000 mcg) by mouth once daily. 90 Tablet 3 02/15/20 23 Active Lactobacillus acidophilus (Florajen Acidophilus) 20 billion cell cap Take 1 Capsule by mouth once daily. Active rOPINIRole (REQUIP) 0.5 mg tabletIndications :Restless legs syndrome (RLS) Take 1 Tablet (0.5 mg) by mouth at bedtime. 30 Tablet 3 03/01/20 23 Active amLODIPine (NORVASC) 10 mg tabletIndications :Essential hypertension Take 1 Tablet (10 mg) by mouth once daily. 90 Tablet 3 08/31/19 24 Active furosemide (LASIX) 20 mg tabletIndications :Primary osteoarthritis involving multiple joints TAKE ONE TABLET BY MOUTH EVERY DAY IN THE MORNING. 90 Tablet 3 08/31/19 24 Active gabapentin (NEURONTIN) 300 mg capsuleIndication s:Restless legs syndrome (RLS),Other chronic pain Take 1 Capsule (300 mg) by mouth three times daily. 270 Capsule 3 08/31/19 24 Active atorvastatin (LIPITOR) 40 mg tabletIndications :Dyslipidemia Take 1 Tablet (40 mg) by mouth at bedtime. 100 Tablet 3 03/07/20 24 Active metFORMIN (GLUCOPHAGE XR) 500 mg Extended-Release tabletIndications :Type 2 diabetes mellitus with diabetic neuropathy, without long-term current use of insulin (HC) Take 1 Tablet (500 mg) by mouth once daily with a meal. 100 Tablet 3 03/07/20 24 Active metoprolol succinate (TOPROL XL) 25 mg Sustained-Release tabletIndications :Paroxysmal atrial fibrillation (HC) TAKE ONE TABLET(25MG) BY MOUTH ONCE DAILY TAKE WITH 100MG TABLET TO EQUAL 125MG 100 Tablet 3 03/07/20 24 Active metoprolol succinate (TOPROL XL) 100 mg Sustained-Release tabletIndications :Essential hypertension TAKE 1 TABLET (100 MG) BY MOUTH ONCE DAILY ALONG WITH A 25MG DOSE. 100 Tablet 3 03/07/20 24 Active blood sugar diagnostic (OneTouch Ultra Test) stripIndications: Type 2 diabetes mellitus with diabetic neuropathy, without long-term current use of insulin (HC) TEST ONCE DAILY 100 Each 3 03/07/20 24 Active warfarin 5 mg tabletIndications :Paroxysmal atrial fibrillation (HC),Anticoagulat ion monitoring, INR range 2-3 Take by mouth 2.5 mg (5 mg x 0.5) every Fri; 5 mg (5 mg x 1) all other days in the evening OR as directed 07/13/19 25 Active traMADoL 50 mg tabletIndications :Primary osteoarthritis involving multiple joints TAKE 1 TABLET (50 MG) BY MOUTH 4 TIMES DAILY IF NEEDED FOR PAIN. 120 Tablet 3 08/15/19 25 Active traMADoL (ULTRAM) 50 mg tabletIndications :Primary osteoarthritis involving multiple joints TAKE 1 TABLET (50 MG) BY MOUTH 4 TIMES DAILY IF NEEDED FOR PAIN. 120 Tablet 2 05/20/19 25 025 Discontinued Active Problems Problem Noted Date Diagnosed Date S/P carpal tunnel release 11/03/2023 Diabetic macular edema, right eye 08/31/2023 PAD (peripheral artery disease) 08/31/2023 Vitamin B12 deficiency 02/14/2023 Anticoagulation monitoring, INR range 2-3 2022 Carpal tunnel syndrome, left 05/20/2022 Depression, recurrent 08/30/2021 Dermatochalasis of both upper eyelids 07/04/2016 Hyperopia of both eyes with astigmatism and pres byopia 07/04/2016 Chondrocalcinosis of right knee 09/01/2015 Nuclear senile cataract of both eyes 05/11/2015 Choroidal nevus of right eye 05/11/2015 Type 2 diabetes mellitus with diabetic neuropath y 12/11/2014 Rotator cuff tear 10/09/2013 Biceps tendon rupture 10/09/2013 Prostate cancer 09/26/2013 Issue of repeat prescriptions 06/30/2012 Overview (12/13/2014): Controlled substance agreement updated and signed 12/11/14 for generalized osteoarthritis. Also has rotator cuff tear and bicipital tendonitis of left shoulder, s/p left hip replacement with chronic pain. Tramadol 100mg twice times daily (#120) per month. Evaluated by Dr. Lara at . Not interested in injection or shoulder repair surgery. Refusing pain management. Starting topical compounds for joint pain. Not allowed early refills. Paroxysmal atrial fibrillation 06/30/2012 Venous stasis 05/30/2012 Osteoarthritis 05/30/2012 Tobacco use disorder 05/30/2012 Dyslipidemia 04/26/2012 DJD (degenerative joint disease), lumbar 012 Restless legs syndrome (RLS) 08/09/2011 DJD of left shoulder 05/10/2011 Rotator cuff syndrome 05/10/2011 Essential hypertension 04/27/2011 CAD (coronary artery disease) 04/27/2011 Overview (10/11/2022): Stent x2 2006 S/P angioplasty with stent 04/27/2011 Resolved Problems Problem Noted Date Diagnosed Date Resolved Date Microalbuminuria 12/31/2018 09/01/2023 Rotator cuff syndrome 10/09/20132013 DJD of shoulder 10/09/2013 10/09/2013 AF (atrial fibrillation) 06/22/2012 DM type 2 (diabetes mellitus, type 2) 04/26/2011 08/31/2015 Encounters Date Type Department Care Team Description 08/13/2024 Telephone [facility] [address] [place] [address] Farzana So, DO Anticoagulation 08/13/2024 Telephone [facility] [address] [place] [address] Farzana So, Questions (traMADoL (ULTRAM) 50 mg tablet status) 08/12/2024 Refill [facility] [address] [place] [address] Farzana So, Refill Request (Tramadol) 08/06/2024 Telephone [facility] [address] [place] [address] Farzana So, Anticoagulation (Annual re-enrollment /) 08/02/2024 Anticoagulation (warfarin) [facility] [address] [place] [address] Clinic, [facility] Anticoagulation 08/01/2024 2:00 PM CDT Orders Only [facility] [address] [place] [address] Lab, [place] [facility] 08/01/2024 Travel 07/19/2024 Anticoagulation (warfarin) [facility] [address] [place] [address] Clinic, [facility] Anticoagulation 07/18/2024 2:45 PM CDT Orders Only [facility] [address] [place] [address] Lab, [facility] 07/18/2024 Travel 07/11/2024 2:00 PM CDT Orders Only [facility] [address] [place] [address] Lab, [facility] 07/11/2024 Anticoagulation (warfarin) [facility] [address] [place] [address] Clinic, [facility] Anticoagulation 07/11/2024 Travel 07/09/2024 Telephone [facility] [address] [place] [address] Farzana So, DO Anticoagulation (review dosing) 05/31/2024 2:00 PM GLOBAL LOGISTICS ANALYST Orders Only [facility] [address] [place] [address] Lab, [place] 05/31/2024 Anticoagulation (warfarin) [facility] [address] [place] [address] 1, [place] [facility] Anticoagulation 05/31/2024 Travel from Last 3 Months Immunizations Immunization Administration Dates Next Due Amb Influenza, Inact (High-d ose) (Flu Clinic Only) 02/16/2014 COVID-19 VACCINE SPIKEVAX (M ODERNA 50MCG/0.5ML) 12YO+ PFS 03/07/2024,03/01/2023 COVID-19 vaccine (Moderna 100mcg/0.5mL) PF, MDV 07/29/2020,07/01/2020 COVID-19 vaccine (Moderna 50mcg/0.5mL) 12YO+ BIVALENT PF, MDV 03/02/2022 COVID-19 vaccine (Moderna Dmitry katia 50mcg/0.25mL) PF, MDV 08/30/2021,03/01/2021 Influenza RIV4 (Age 18+ Year s) PRESERV FREE 01/30/2019 Influenza, High-dose Inactivated 02/23/2018,07/2015,01/15/2015 Influenza, IIV3 (Age >=3 years) 01/21/2013,04/26 Influenza, Inactivated AIIV4 (Age 65+ Years) Preserv Free 01/09/2023,03/02/2022,03/01/2021,2019 Influenza, Inactivated IIV3 (Age 65+ Years) Preserv Free 03/07/2024,03/03/2017 Pneumococcal Poly,23-Valent (Pneumovax) 04/17/2010 Pneumococcal conj 13-Valent (Prevnar 13) 09/01/2015 Tdap 09/26/2013 Family History Medical History Relation Name Comments Unknown Other Relation Name Status Comments Other Social History Tobacco Use Types Packs/Day Years Used Date Smoking Tobacco: Every Day Pipe Smokeless Tobacco: Never Tobacco Cessation:Ready to Q uit: Not Asked; Counseling Given: Yes Comments:~ 10-15 pipefuls per day Alcohol Use Standard Drinks/Week Comments No 0 (1 standard drink = 0.6 oz pur e alcohol) PHQ-2 Answer Date Recorded PHQ-2 TOTAL SCORE 2 08/31/2023 Social Connections Answer Date Recorded Do you often feel lonely or isolated from those around you? 0 03/07/2024 Financial Resource Strain Answer Date R ecorded Difficulty of Paying Living Expenses 3 03/07/2024 Difficulty of Paying Living Expenses Not on file 03/07/2024 Food Insecurity Answer Date Recorded Do you worry your food will run out before you are able to buy more? 1 03/07/2024 Transportation Needs Answer Date Record ed Does lack of transportation keep you from medica l appointments? 1 03/07/2024 Does lack of transportation keep you from work, meetings or getting things that you need? 1 03/07/2024 Housing Stability Answer Date Recorded What is your housing situation today? 1 03/07/2024 Utilities Answer Date Recorded Do you have trouble paying f or utilities (for example, heat, electricity, water, phone)? 1 03/07/2024 Sex and Gender Information Value Date Recorded Sex Assigned at Not on file Legal Sex Male 6:12 AM GLOBAL LOGISTICS ANALYST Gender Identity Not on file Sexual Orientation Not on file Obstetrics History Last Filed Vital Signs Vital Sign Reading Time Taken Comments Blood Pressure 100/52 04/23/2024 2:02 PM GLOBAL LOGISTICS ANALYST Pulse 71 04/23/2024 2:02 PM GLOBAL LOGISTICS ANALYST Temperature 22.2 C (72 F) 07/06/2023 8:44 AM CDT Respiratory Rate 16 07/06/2023 9:30 AM CDT Oxygen Saturation 98% 04/23/2024 2:02 PM GLOBAL LOGISTICS ANALYST Inhaled Oxygen Concentration - - Weight 72.6 kg (160 lb) 04/23/2024 2:02 PM GLOBAL LOGISTICS ANALYST Height 175.3 cm (5' 9) 08/31/2023 1:05 PM CDT Body Mass Index 23.63 08/31/2023 1:05 PM CDT Plan of Treatment Upcoming Encounters Date Type Department Care Team (Late st Contact Info) Description 08/29/2024 2:35 PM CDT Office Visit [facility] [address] [place] [address] [place] [address] [place], [place] [id number] Health Maintenance Due Date Last Done Comments Zoster (shingles) series for age 50+ (1 of 2) 1987 RSV vaccine for adults or (1 - 1-dose 75+ series) 2012 Tetanus booster 09/27/2023 09/26/2013, 0704/2009 [facility] BMI (ht and wt on same day) for age 18+ 08/30/2024 08/31/2023, 06/29/2023, 03/01/2023, Additional history exists Depression screening for age 12+ 08/30/2024 08/31/2023, 08/31/2023, 02/13/2023, Additional history exists Medicare Wellness for age 65+ 08/31/2024, 08/31/2022, 03/01/2021, Additional history exists COVID-19 vaccine series ( season) 2024 03/07/2024, 03/01/2023, 03/02/2022, Additional history exists Tdap Completed 09/26/2013 Pneumococcal series for age 50+ Completed 6, 04/17/2010 Influenza Vaccine Completed 03/07/2024, , 03/02/2022, Additional history exists Procedures Procedure Name Priority Date/Time Associated Diagnosis Comments INR,POCT Routine 08/01/2024 2:11 PM CDT Paroxysmal atrial fibrillation (HC) Anticoagulation monitoring, INR range 2-3 PROTIME-INR Routine 07/18/2024 2:40 PM CDT Paroxysmal atrial fibrillation (HC) Anticoagulation monitoring, INR range 2-3 PROTIME-INR STAT 07/11/2024 1:59 PM CDT Paroxysmal atrial fibrillation (HC) Anticoagulation monitoring, INR range 2-3 INR,POCT Routine 07/11/2024 1:53 PM CDT Paroxysmal atrial fibrillation (HC) Anticoagulation monitoring, INR range 2-3 INR,POCT Routine 05/31/2024 1:51 PM GLOBAL LOGISTICS ANALYST Paroxysmal atrial fibrillation (HC) Anticoagulation monitoring, INR range 2-3 from Last 3 Months Results * (ABNORMAL) INR - POCT [[id number]] - Standing Order (08/01/2024 2:11 PM CDT) Only the most recent of3 resultswithin the time period is included. INR 2.3(H) ratio [facility] Comment: INRs >2.9 may be falsely elevated in patients receiving either unfractionated Heparin or Low Molecular Weight Heparin. Follow up testing in a hospital laboratory may be helpful if clinically indicated. INR results of > or = 5.0 should be verified using the standard venipuncture procedure. Reference Range 0.9-1.1 Moderate-intensity Warfarin Therapy 2.0-3.0 Higher-intensity Warfarin Therapy 3.0-4.0 PROTHROMBIN TIMEP 27.5(H) 10.5 - 13.1 sec [facility] Comment: Point of care fingerstick Prothrombin Time/INR results may vary from venous Prothrombin Time/INR methodologies. Any results exhibiting inconsistency with the patient's clinical status should be repeated using a venous Prothrombin Time/INR method. Blood BLOOD SPECIMEN / Unknown 08/01/2024 2:11 PM CDT 08/01/2024 2:11 PM CDT us Farzana So DO LABORATORY Final Resul t [facility] [address] [place] [address], [facility] [address] [place] [address] * (ABNORMAL) PROTIME-INR [[id number]] - Standing Order (07/18/2024 2:40 PM CDT) Only the most recent of2 resultswithin the time period is included. INR 2.0(H) <1.3 07/18/2024 10:27 PM CDT [facility] PROTIME 23.0(H) 10.6 - 12.4 sec 07/18/2024 10:27 PM CDT [facility] Blood BLOOD SPECIMEN / Unknown [facility] / Unknown 07/18/2024 2:40 PM CDT 07/18/2024 2:40 PM CDT Narrative [facility] - 07/18/2024 10:27 PM CDT Therapeutic Range 2.0-3.0 for most anticoagulated patients 2.5-3.5 or 4.0 for high risk patients The INR is only used for patients on stable oral anticoagulant therapy. It makes no significant contribution to the diagnosis or treatment of patients whose Protime is prolonged for other reasons. INR results are increased when heparin levels exceed 1.0 U/mL, which corresponds to an aPTT >125 seconds if the patient is on UFH. us Farzana So DO HEMATOLOGY Final Resul t [facility] [address] [place] [address], [place] from Last 3 Months Insurance [phone] [place] [address] [facility] MEDICARE ADVANTAGE MR MEDICARE PART A HB ONLY Advance Directives Documents on File Type Date Recorded Patient Outside Plant Supervisor Expl anation Healthcare Directive 05/09/2022 023 * Full Code (Latest Code Status on File) Date Activated Date Inactivated Comments 07/06/2023 7:24 AM 07/06/2023 12:13 PM Question Answer Comments Code Status Discussion: Unable to Assess Preferences, Provider to review later * Full Code Date Activated Date Inactivated Comments 06/22/2012 10:13 AM 06/22/2012 6:21 PM Care Teams Process Maintenance Technician Relationship Specialty [place] [address] [place] [address] PCP - General Family Practice 12/12/11
--- NOTE | 2024-08-22 01:34 | CRLHL7_ITS ---
For Patients: As a result of the Cures Act, medical imaging exams and procedure reports are released immediately into your electronic medical record. You may view this report before your referring provider. If you have questions, please contact your health care provider. INDICATION: Confusion, history of AFib. TECHNIQUE: Chest 1 views. COMPARISON: 01/04/2023. FINDINGS: Cardiovascular and mediastinum: Heart size is normal. Unremarkable mediastinum. Atherosclerotic calcifications of the aortic arch. Lungs and pleural spaces: No sign of infiltrate or mass. No sign of pleural effusion. No pneumothorax. Bones and soft tissues: No significant findings. IMPRESSION: No acute findings. Dictated by Og Olivas MD @ 08/22/2024 2:03:21 AM (Electronically Signed)
[2024-08-22 01:41] LABS: HCO3 VBG 25 mmol/L (21-28); PCO2 VBG 45 mmHG (40-50); PO2 VBG 32.9 mmHG (25-47)
[2024-08-22 01:41] LABS: Troponin, Point-of-Care* 0.01 ng/ml (0.01-0.04)
[2024-08-22 01:43] LABS: Basophils Percent Auto 0.4 % (0.0-3.0); Eosinophils Percent Auto 2.2 % (0.0-7.0); Hematocrit 44.9 % (37.0-53.0); Hemoglobin* 14.4 gm/dL (13.5-17.5); Immature Granulocytes Pct Auto 0.3 %; Lymphocytes Percent Auto 23.1 % (20-44); Mean Corpuscular HGB Conc 32 gm/dL (32-36); Mean Corpuscular Hemoglobin 32 pg (26-34); Mean Corpuscular Volume 100 fL (80-100); Monocytes Percent Auto 11.9 % (0.0-11.0); Neutrophils Percent Auto 62.1 % (42.0-72.0); Platelet Count* 375 K/uL (140-440); RDW Coefficient of Variation % 13.1 % (11.5-15.5); Red Blood Count 4.47 m/uL (4.30-5.90); White Blood Count* 12.32 K/uL (4.50-11.00)
[2024-08-22] MEDS: 0.9 % SODIUM CHLORIDE 500 ML 500 ML IV (01:48)
[2024-08-22 01:52] LABS: Appearance Urine Clear (Clear); Bilirubin Urine Negative (Negative); Blood Urine Trace-intact (Negative); Color Urine Yellow (Yellow); Glucose Urine Negative (Negative); Ketones Urine 1+ (Negative); Leukocyte Esterase Urine Negative (Negative); Nitrite Urine Negative (Negative); Protein Urine Trace (Negative); Specific Gravity Urine 1.015 (1.000-1.030); Urobilinogen Urine 0.2 (0.2-1.0); pH Urine 6.5 (5.0-8.5)
[2024-08-22 01:55] LABS: Chloride* 108 mmol/L (96-114); Potassium* 4.8 mmol/L (3.6-5.1); Sodium* 143 mmol/L (135-149)
[2024-08-22 01:58] LABS: Anion Gap 13 mEq/L (7-15); Blood Urea Nitrogen* 25 mg/dL (7-30); Calcium* 9.8 mg/dL (8.4-10.6); Carbon Dioxide* 22 mmol/L (20-32); Creatinine* 1.2 mg/dL (0.5-1.5); Estimated Glomerular Filt Rate 59 ml/min; Glucose* 130 mg/dL (60-115)
[2024-08-22 01:59] LABS: Magnesium* 1.5 mg/dL (1.5-2.6)
[2024-08-22 02:01] LABS: Slide Review Reflex No
[2024-08-22 02:02] LABS: INR 1.71 (0.91-1.10); Prothrombin Time 21.1 Seconds
[2024-08-22 02:07] LABS: Amorphous Sediment Urine Few; Bacteria Urine Few; RBC Urine 0-2 (0-2); Squamous Epithelial Cell Urine Few (None-Few); WBC Urine 0-2 (0-5)
[2024-08-22 03:29] LABS: Troponin, Point-of-Care* 0.01 ng/ml (0.01-0.04)
== END 2024-08-22 03:48 | disposition home or self-care (01) ==
PROVIDERS: Emergency Provider Family Medicine; PCP Family Medicine
DX: R41.0 Disorientation, unspecified (principal); I48.0 Paroxysmal atrial fibrillation; R79.1 Abnormal coagulation profile; Z79.01 Long term (current) use of anticoagulants
CPT/HCPCS: 36415; 71045; 80048; 81001; 82803; 83735; 84484; 85025; 85610; 87086; 93005; 96360; 99284; 99285; J7030